=== PATIENT | male | born 1990 | race Caucasian/White ===

== ENCOUNTER 2017-10-27 13:41 | Emergency (ER) | payer OTHER ==
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
[2017-10-27] MEDS ORDERED: IBUP800T37 PO (14:51)
[2017-10-27 15:00] VITALS: BP 120/73
== END 2017-10-27 15:01 | disposition home or self-care (01) ==
LOC: ER 13:42
DX: I10 Essential (primary) hypertension (principal); S80.02XA Contusion of left knee, initial encounter; S80.01XA Contusion of right knee, initial encounter; S16.1XXA Strain of muscle, fascia and tendon at neck level, initial encounter
CPT/HCPCS: 70486; 72125; 73564; 99283